=== PATIENT | female | born 1965 | race Caucasian/White ===

== ENCOUNTER 2020-04-11 13:58 | Inpatient (IN) | payer OTHER, MEDICAID ==
[~2020-04-11] VITALS: Ht 152.4 cm; Wt 63.5 kg
[2020-04-11] MEDS ORDERED: SODIUM CHLORIDE 0.9% 500 ML IV ONE (15:19)
[2020-04-11 15:35] LABS: BASOPHILS % 0.6 % (0.0-2.0); EOSINOPHILS % 1.5 % (0.0-5.0); HEMATOCRIT. 43.3 % (36.0-48.0); HEMOGLOBIN. 14.7 g/dL (12.0-16.0); LYMPHOCYTES % 31.3 % (20.0-50.0); MEAN CORPUSCULAR HEMOGLOBIN 31.2 pg (28.0-32.0); MEAN CORPUSCULAR VOLUME 91.9 fL (81.0-99.0); MEAN PLATELET VOLUME 9.4 fl (7.4-10.4); MONOCYTES % 6.4 % (2.0-8.0); NEUTROPHILS % 60.2 % (40.0-76.0); PLATELET 270 x1000/uL (130-400); RED BLOOD CELL COUNT 4.71 mill/uL (4.2-5.4); RED CELL DISTRIBUTION WIDTH 13.2 % (11.6-14.6)
[2020-04-11 15:36] LABS: CLARITY URINE CLEAR (CLEAR); COLOR URINE YELLOW (YELLOW); KETONES URINE NEGATIVE (NEGATIVE); LEUKOCYTE ESTERASE URINE NEGATIVE (NEGATIVE); NITRITE URINE NEGATIVE (NEGATIVE); OCCULT BLOOD URINE TRACE (NEGATIVE); PROTEIN URINE NEGATIVE (NEGATIVE); SPECIFIC GRAVITY URINE 1.042 (1.005-1.030); UROBILINOGEN URINE 0.2 E.U./dL (0.2-1.0)
[2020-04-11 15:43] LABS: CHLORIDE 104 mEq/L (98-107)
[2020-04-11 15:48] LABS: C REACTIVE PROTEIN QUANT 2.1 mg/L (0.0-3.0)
[2020-04-11 15:52] LABS: PROTHROMBIN TIME 10.1 sec (9.6-11.0)
[2020-04-11] MEDS ORDERED: DEXTROSE 50% WATER 50ML SYRINGE IV PRN (21:00)
[2020-04-11] MEDS ORDERED: NA PHOS,M-B/NA PHOS,DI-BA ENEMA 118ML PR PRN (21:00)
[2020-04-11] MEDS ORDERED: ONDANSETRON HCL 4MG/2ML INJ IV PRN (21:00)
[2020-04-11] MEDS ORDERED: GUAIFENESIN 200MG/10ML SUGAR FREE UDC PO PRN (21:00)
[2020-04-11] MEDS ORDERED: MAGNESIUM/ALUMINUM HYDROXIDE/SIMETHICONE 30ML UDC PO PRN (21:00)
[2020-04-11] MEDS ORDERED: DOCUSATE SODIUM 100MG CAPSULE PO PRN (21:00)
[2020-04-11] MEDS ORDERED: DIPHENHYDRAMINE 50MG/ML VIAL IV PRN (21:00)
[2020-04-11] MEDS ORDERED: ACETAMINOPHEN 325MG TABLET PO PRN ×2 (21:00)
[2020-04-11] MEDS ORDERED: CLONIDINE 0.1MG TABLET PO PRN (21:00)
[2020-04-11] MEDS ORDERED: ACETAMINOPHEN 650MG SUPP PR PRN ×2 (21:00)
[2020-04-11] MEDS ORDERED: ACETAMINOPHEN 650MG/20.3ML UDC GT PRN ×2 (21:00)
[2020-04-11] MEDS ORDERED: CLINDAMYCIN 900 MG PREMIX 50 ML IV NR (21:15)
[2020-04-11 21:53] VITALS: BP 149/86
[2020-04-11] MEDS: HYDROCODONE/ACETAMINOPHEN 10/325MG TABLET PO PRN (22:50)
[2020-04-11] MEDS: BLOOD SUGAR DIAGNOSTIC STRIP TEST SCH (22:51)
[2020-04-11] MEDS: INSULIN LISPRO 100 UNITS/ML SUBCUT SCH (22:51)
[2020-04-11] MEDS: SODIUM CHLORIDE 0.9% INJ 3ML FLUSH IVF SCH (22:54)
[2020-04-11 23:00] VITALS: BP 149/86
[2020-04-11] MEDS ORDERED: IOHEXOL-350 100 ML BOTTLE ONE (23:18)
[2020-04-11] MEDS ORDERED: LORA10TA7 PO (23:40)
[2020-04-11] MEDS ORDERED: ASPI-1497 PO (23:40)
[2020-04-11] MEDS ORDERED: EMPA1TAB PO (23:40)
[2020-04-11] MEDS ORDERED: NAPR500T7 PO (23:40)
[2020-04-12 00:01] VITALS: BP 120/80
[2020-04-12 00:11] LABS: CREATINE KINASE 52 IU/L (26-192)
[2020-04-12 00:12] LABS: CREATINE KINASE MB FRACTION < 1.0 ng/mL (0.5-3.6)
[2020-04-12 04:00] VITALS: BP 146/75
[2020-04-12] MEDS: SODIUM CHLORIDE 0.9% INJ 3ML FLUSH IVF SCH ×2 (05:27→14:31)
[2020-04-12] MEDS: CLINDAMYCIN 900 MG in DEXTROSE 5% WATER 50 ML IV SCH ×2 (05:27→14:31)
[2020-04-12] MEDS ORDERED: CLINDAMYCIN 900 MG in DEXTROSE 5% WATER 50 ML IV SCH (06:00)
[2020-04-12] MEDS: BLOOD SUGAR DIAGNOSTIC STRIP TEST SCH ×2 (06:30→12:10)
[2020-04-12] MEDS: INSULIN LISPRO 100 UNITS/ML SUBCUT SCH ×2 (06:30→12:40)
[2020-04-12 06:36] LABS: CHLORIDE 109 mEq/L (98-107)
[2020-04-12 07:13] LABS: LDL CHOLESTEROL 130 mg/dL (5-100)
[2020-04-12 07:14] LABS: CREATINE KINASE MB FRACTION < 1.0 ng/mL (0.5-3.6); HDL CHOLESTEROL 65 mg/dL (40-59)
[2020-04-12 07:19] LABS: CREATINE KINASE 73 IU/L (26-192)
[2020-04-12 07:33] LABS: BASOPHILS % 0.3 % (0.0-2.0); HEMATOCRIT. 39.2 % (36.0-48.0); HEMOGLOBIN. 13.4 g/dL (12.0-16.0); LYMPHOCYTES % 25.3 % (20.0-50.0); MEAN CORPUSCULAR HEMOGLOBIN 31.1 pg (28.0-32.0); MEAN CORPUSCULAR VOLUME 90.8 fL (81.0-99.0); MEAN PLATELET VOLUME 9.7 fl (7.4-10.4); MONOCYTES % 5.6 % (2.0-8.0); NEUTROPHILS % 67.8 % (40.0-76.0); PLATELET 223 x1000/uL (130-400); RED BLOOD CELL COUNT 4.32 mill/uL (4.2-5.4); RED CELL DISTRIBUTION WIDTH 13.4 % (11.6-14.6)
[2020-04-12 08:00] VITALS: BP 150/79
[2020-04-12 08:09] LABS: *AMPHETAMINES SCREEN URINE NEGATIVE (NEGATIVE); *BARBITURATES SCREEN URINE NEGATIVE (NEGATIVE); *BENZODIAZEPINES SCREEN URINE NEGATIVE (NEGATIVE)
[2020-04-12 08:10] LABS: *COCAINE SCREEN URINE NEGATIVE (NEGATIVE); CANNABINOID URINE SCREEN NEGATIVE (NEGATIVE); METHADONE URINE SCREEN NEGATIVE (NEGATIVE); OPIATES URINE SCREEN NEGATIVE (NEGATIVE); PHENCYCLIDINE URINE SCREEN NEGATIVE (NEGATIVE)
[2020-04-12] MEDS: HYDROCODONE/ACETAMINOPHEN 10/325MG TABLET PO PRN (10:22)
[2020-04-12 12:00] VITALS: BP 144/64
[2020-04-12] MEDS ORDERED: AMLO10TA4 MT (12:55)
[2020-04-12] MEDS ORDERED: EMPA1TAB PO (12:55)
[2020-04-12] MEDS ORDERED: ASPI-1497 PO (12:55)
[2020-04-12] MEDS ORDERED: ATOR20TA MT (12:55)
[2020-04-12] MEDS ORDERED: AMLODIPINE 10MG TABLET PO SCH (13:00)
[2020-04-12] MEDS ORDERED: ASPIRIN 325MG TABLET PO SCH (13:00)
[2020-04-12 15:25] VITALS: BP 154/71
[2020-04-12 16:00] VITALS: BP 154/71
[2020-04-12] MEDS ORDERED: ATORVASTATIN CALCIUM 20MG TABLET PO SCH (21:00)
== END 2020-04-12 16:40 | disposition home or self-care (01) | DRG 639 ==
LOC: ER 13:58 → 8WST 17:08 → EDBEDREQTM 18:47 → ENRESERV 20:38
PROVIDERS: ADMIT Family Medicine; ATTEND Family Medicine
DX: E11.65 Type 2 diabetes mellitus with hyperglycemia (principal); E11.36 Type 2 diabetes mellitus with diabetic cataract; H53.2 Diplopia; I10 Essential (primary) hypertension; Z86.73 Personal history of transient ischemic attack (TIA), and cerebral infarction without residual deficits
CPT/HCPCS: 36415; 70496; 80053; 80061; 80305; 81003; 82550; 82553; 82962; 83036; 84484; 85025; 85651; 86140; 93005; 99285; J1815; J2405; J3490; J7030; J7060; Q9967